=== PATIENT | female | born 1975 | race Caucasian/White ===

== ENCOUNTER 2021-08-30 08:35 | Inpatient (IN) ==
[2021-08-30 09:09] LABS: Bacteria,Urine Few per hpf (None-Few); Bilirubin,Urine Negative (Negative); Blood,Urine Negative (Negative); Clarity,Urine Turbid (Clear); Color,Urine Yellow (Yellow); Glucose,Urine (UA) Normal (Normal); Ketones,Urine Negative (Negative); Leukocyte Esterase,Urine Negative (Negative); Mucus,Urine Moderate per lpf (None-Few); Nitrite,Urine Negative (Negative); PH,Urine 6.5 pH Units (5.0-8.0); Protein,Urine 50 mg/dL (Neg-Trace); Specific Gravity,Urine 1.025 (1.010-1.025); Squamous Epithelial Cell,Urine Many per hpf (None-Few); Urobilinogen,Urine Normal (Normal); WBC,Urine 0-3 per hpf (0-3)
[2021-08-30 09:26] LABS: Acetaminophen < 10 mcg/mL (10-20); BUN/Creatinine Ratio 10 (6-26); Blood Urea Nitrogen 8 mg/dL (6-20); Calcium 9.1 mg/dL (8.6-10.3); Carbon Dioxide 28 mEq/L (23-29); Chloride 106 mEq/L (98-107); Chol/HDL Ratio 3.9 (0-4.9); Cholesterol 209 mg/dL (< 200); Ethanol < 10 mg/dL (Less than 10); Glucose 103 mg/dL (70-105); HDL Cholesterol 54 mg/dL (40-59); LDL Cholesterol,Calculated 122 mg/dL (< 100); Osmolality,Calculated 287 (280-300); Potassium 4.2 mEq/L (3.5-5.1); Salicylate < 2.5 mg/dL (15.0-30.0); Sodium 139 mEq/L (136-145); Triglycerides 163 mg/dL (< 150); eGFR For African Americans > 60 (> 60); eGFR For Non-African Americans > 60 (> 60)
[2021-08-30 09:29] LABS: Basophils # 0.1 K/mcL (0.0-0.2); Basophils % 0.6 %; Eosinophils # 0.2 K/mcL (0.0-0.6); Hematocrit 41.7 % (35.3-44.9); Hemoglobin 13.1 g/dL (11.5-15.4); Immature Granulocytes % 0.2 % (0-4); Lymphocytes # 1.6 K/mcL (0.6-4.6); Lymphocytes % 18.3 %; Mean Corpuscular HGB Conc 31.4 g/dL (31.6-35.5); Mean Corpuscular Hemoglobin 27.1 pg (28.0-33.3); Mean Corpuscular Volume 86.3 fL (83.0-100.0); Mean Platelet Volume 9.2 fL (9.4-12.4); Monocytes # 0.5 K/mcL (0.0-1.3); Monocytes % 6.1 %; Neutrophils # 6.2 K/mcL (1.6-8.9); Platelet Count 396 K/mcL (140-400); Red Blood Count 4.83 M/mcL (3.82-4.97); Red Cell Distribution Width 14.9 % (11.5-14.5); Segmented Neutrophils % 72.8 %; White Blood Count 8.5 K/mcL (4.3-11.1)
[2021-08-30 10:05] LABS: Amphetamine Screen,Urine Positive ng/mL (Cutoff=1000); Barbiturate Screen,Urine Negative ng/mL (Cutoff=200); Benzodiazepines Screen,Urine Negative ng/mL (Cutoff=200); Cannabinoid Screen,Urine Positive ng/mL (Cutoff = 50); Cocaine Screen,Urine Negative ng/mL (Cutoff= 300); Opiate Screen,Urine Negative ng/mL (Cutoff=300); Phencyclidine Screen,Urine Negative ng/mL (Cutoff=25)
[2021-08-30 10:21] LABS: Estimated Average Glucose 123 mg/dl; Hemoglobin A1C 5.9 %
[2021-08-30 13:42] LABS: Influenza A PCR Negative (Negative); Influenza B PCR Negative (Negative); Resp. Syncytial Virus PCR Negative (Negative)
[2021-08-30 13:59] LABS: SARS-CoV-2 by PCR (In House) Negative (Negative)
[2021-08-30] MEDS ORDERED: Acetaminophen 325 MG TABLET PO PRN (15:29)
[2021-08-30] MEDS ORDERED: *HR* LORazepam 2 MG/ML VIAL IM PRN (15:29)
[2021-08-30] MEDS ORDERED: *HR* LORazepam 1 MG TABLET PO PRN (15:29)
[2021-08-30] MEDS ORDERED: haloperidoL 5 MG TABLET PO PRN (15:29)
[2021-08-30] MEDS ORDERED: Haloperidol Lactate 5 MG/ML VIAL IM PRN (15:29)
[2021-08-30] MEDS: traZODone 50 MG TABLET PO PRN (20:57)
[2021-08-30] MEDS: hydrOXYzine pamoate 25 MG CAPSULE PO PRN (20:57)
[2021-08-30] MEDS ORDERED: ARIPiprazole 5 MG TABLET PO SCH (21:00)
[2021-08-31] MEDS ORDERED: ARIPiprazole 10 MG TABLET PO SCH (21:00)
[2021-08-31] MEDS: hydrOXYzine pamoate 25 MG CAPSULE PO PRN (22:01)
[2021-08-31] MEDS: traZODone 50 MG TABLET PO PRN (22:01)
[2021-09-01 08:14] VITALS: BP 117/79; PULSE 94; TEMP 98.2; O2SAT 100
== END 2021-09-01 15:12 | disposition home or self-care (01) | DRG 885 ==
LOC: EMEROOARM 08:35 → 1ANU 14:10
PROVIDERS: ADMIT Psychiatry & Neurology Psychiatry; ATTEND Psychiatry & Neurology Psychiatry